=== PATIENT | male | born 1990 | race Two or more races ===

== ENCOUNTER 2024-08-04 12:50 | Emergency (ER) | payer SELFPAY ==
[~2024-08-04] VITALS: Ht 182.9 cm; Wt 110.0 kg
[2024-08-04 13:13] VITALS: BP 124/80; PULSE 65; RESP 16; TEMP 98.3; O2SAT 99
== END 2024-08-04 14:50 | disposition home or self-care (01) ==
LOC: ER 12:50
DX: B34.9 Viral infection, unspecified (principal); K21.9 Gastro-esophageal reflux disease without esophagitis; Z98.890 Other specified postprocedural states
CPT/HCPCS: 71045; 99283